=== PATIENT | male | born 1965 | race Two or more races ===

== ENCOUNTER 2023-10-14 20:19 | Emergency (ER) | payer OTHER ==
[~2023-10-14] VITALS: Ht 180.3 cm; Wt 124.0 kg
[2023-10-14 21:03] VITALS: O2SAT 98
[2023-10-14] MEDS ORDERED: DOXY100T28 MT (23:27)
[2023-10-14 23:49] VITALS: BP 146/78; PULSE 72; RESP 20; TEMP 98.3
== END 2023-10-14 23:51 | disposition home or self-care (01) ==
LOC: ER 20:19
DX: S61.213D Laceration without foreign body of left middle finger without damage to nail, subsequent encounter (principal); L03.012 Cellulitis of left finger; E11.9 Type 2 diabetes mellitus without complications; Z85.6 Personal history of leukemia; X58.XXXD Exposure to other specified factors, subsequent encounter
CPT/HCPCS: 99281; 99283